=== PATIENT | male | born 1975 | race Two or more races ===

== ENCOUNTER 2024-02-07 11:37 | Emergency (ER) | payer MEDICAID, SELFPAY ==
[2024-02-07 12:08] VITALS: BP 164/102; PULSE 101; RESP 19; TEMP 36.8; O2SAT 98; BMI 37.3
--- NOTE | 2024-02-07 12:14 | PD.EDRME ---
Rapid Medical Screening Exam RME Arrival date/time: 02/07/24 11:37 48-year-old male presents emergency department complaining of right facial swelling and tooth infection. Chief Complaint: Dental/Oral/Throat Vital signs: Vital Signs Temperature 98.3 F 02/07/24 12:08 Pulse Rate 101 H 02/07/24 12:08 Respiratory Rate 19 02/07/24 12:08 Blood Pressure 164/102 H 02/07/24 12:08 Pulse Oximetry (%) 98 02/07/24 12:08 Oxygen Delivery Method Room Air 02/07/24 12:08 Vital signs reviewed by provider: Yes
[2024-02-07 12:33] LABS: Lactate (Lactic Acid) 1.3 mMol/L (0.4-2.0)
[2024-02-07 12:34] LABS: Basophils % (Auto) 0 % (0-2.5); Eosinophils % (Auto) 0 % (0-10); Hematocrit 43.4 % (41.0-53.0); Hemoglobin 15.2 g/dL (13.5-16.0); Immature Granulocytes % (Auto) 0 % (0-0); Immature Granulocytes Auto 0.04 Thou/mm3 (0.00-0.00); Lymphocytes % (Auto) 20 % (10-50); Mean Corpuscular Hemoglobin 30.6 pg (25.0-35.0); Mean Corpuscular Volume 87 fL (80-100); Monocytes # (Auto) 0.5 Thou/mm3 (0.0-0.8); Monocytes % (Auto) 4 % (0-12); Neutrophils # (Auto) 7.7 Thou/mm3 (1.8-7.7); Neutrophils % (Auto) 75 % (37-80); Nucleated Red Blood Cell % 0 /100 WBC (0); Platelet Count 244 Thou/mm3 (140-440); RDW Standard Deviation 41.7 fL (35.1-43.9); Red Blood Count 4.97 Miln/mm3 (4.50-5.90); White Blood Count 10.2 Thou/mm3 (3.8-10.6)
[2024-02-07 13:10] LABS: Alanine Aminotransferase 18 U/L (10-49); Albumin, Serum 4.8 gm/dL (3.5-5.0); Albumin/Globulin Ratio 1.4 (1.2-2.2); Alkaline Phosphatase 122 U/L (46-116); Anion Gap 5 (7-16); Aspartate Amino Transferase 16 U/L (0-34); BUN/Creatinine Ratio 17 Ratio (12-20); Bilirubin,Total 1.4 mg/dL (0.3-1.2); Blood Urea Nitrogen 17 mg/dL (9-23); Calcium 9.5 mg/dL (8.3-10.6); Calcium (Corrected) 9.5 mg/dL (8.5-10.1); Chloride 104 mMol/L (98-107); Estimated Creatinine Clearance 113.7 mL/min (>60); Globulin 3.5 gm/dL (2.3-3.5); Glucose 103 mg/dL (74-106); Osmolality,Calculated 275 (275-295); Potassium 3.7 mMol/L (3.4-5.1); Sodium 137 mMol/L (136-145); Total Protein 8.3 gm/dL (5.7-8.2); eGFR > 60 See Note
--- NOTE | 2024-02-07 15:03 | EDNOTE_ITS ---
ED Dental RME/HPI General Chief complaint: Dental/Oral/Throat Stated complaint: TOOTHACHE W/RIGHT SIDED FACIAL SWELLING Time Seen by Provider: 02/07/24 14:51 Arrival date/time: 02/07/24 11:37 RME / HPI RME / HPI Narrative: 48-year-old male presents emergency department complaining of right facial swelling and tooth infection. This been ongoing for the last 1 to 2 days. Denies any fever denies any difficulty swallowing. Denies any other complaints no medication was taken prior travel. Related Data Home Medications ?Medication ?Instructions ?Recorded ?Confirmed alprazolam 2 mg tablet (Xanax) 1 mg PO BID #0 tabs 05/14/16 08/18/18 Previous Rx's ?Medication ?Instructions ?Recorded omeprazole 20 mg capsule,delayed 20 mg PO QDAY #14 caps 09/02/18 release hydrocodone 5 mg-acetaminophen 325 1 tab PO QID PRN pain #14 tabs 10/29/18 mg tablet (Tracy) acetaminophen 500 mg tablet 500 mg PO Q6H PRN pain (scale 12/21/18 (Tylenol Extra Strength) score 4-6) #30 tabs ibuprofen 800 mg tablet 800 mg PO Q8H #30 tabs 02/20/19 clindamycin HCl 300 mg capsule 300 mg PO Q6H #28 caps 02/07/24 clindamycin HCl 300 mg capsule 300 mg PO Q6H #28 caps 02/07/24 ibuprofen 800 mg tablet 800 mg PO TID PRN pain #30 tabs 02/07/24 ibuprofen 800 mg tablet 800 mg PO TID PRN pain #30 tabs 02/07/24 Allergies Allergy/AdvReac Type Severity Reaction Status Date / Time codeine Allergy Severe SPINNING Verified 02/07/24 11:40 SENSATION Review of Systems Review of Systems Narrative Review of Systems: Review of system reviewed and within normal limits except mentioned in HPI ED Exam Narrative Physical exam: VITAL SIGNS: Reviewed. GENERAL APPEARANCE: Alert and interactive, follows commands, no acute distress, HEAD AND FACE: Non-traumatic. ENT: PERRL, pink conjunctivitis, eyelid no trauma, Mucous membrane moist. Multiple dental cavities noted. Gumline swelling noted on the right upper premolar, facial swelling noted on the right, nonfluctuant no redness NECK: Supple, nontender, no nuchal rigidity. CHEST: No tenderness, no crepitus, no paradoxical movement, no retractions. LUNGS: Clear, well ventilated, symmetric, no rales, no wheezing, no ronchi, no stridor, good breath sounds bilaterally. HEART: Regular rate, regular rhythm, no murmur, no gallops. ABDOMEN: Soft, positive bowel sounds, nondistended, no guarding, nontender, no rebound, no masses, RECTAL: Deferred. GENITAL: Deferred. NEUROLOGICAL: Gross motor function intact sensory function intact, Appropriate for age. MUSCULOSKELETAL: low back nontender, full range of motion. EXTREMITIES: Nontender, full range of motion. SKIN: Color pink, dry, no rash, no lacerations, no abrasions, no contusions. LYMPHATICS: Deferred. Course Quality Measures none Orders Category Date Time Status Blood Culture (Lab) Stat Lab 02/07/24 12:22 Results CBC Stat Lab 02/07/24 12:26 Completed CMP [Comprehensive Metabolic Panel] Stat Lab 02/07/24 12:26 Completed Lactate (Lactic Acid) Stat Lab 02/07/24 12:26 Completed Procalcitonin Stat Lab 02/07/24 12:26 Completed Clindamycin Vial [Cleocin vial] Med 02/07/24 14:59 Discontinued 600 mg IM X1 ONE Ketorolac Inj [Toradol Inj] Med 02/07/24 14:59 Discontinued 30 mg IM X1 ONE Vital Signs Vital signs: Vital Signs Temperature 98.3 F 02/07/24 12:08 Pulse Rate 101 H 02/07/24 12:08 Respiratory Rate 19 02/07/24 12:08 Blood Pressure 164/102 H 02/07/24 12:08 Pulse Oximetry (%) 98 02/07/24 12:08 Oxygen Delivery Method Room Air 02/07/24 12:08 Dental / Oral MDM Narrative MDM Narrative:: Patient's workup today all came back unremarkable no leukocytosis noted. Patient was given clindamycin IM and Toradol IM patient will be sent home on clindamycin and Motrin, patient was advised to come back to emergency room in 2 to 3 days for possible incision and drainage. At this time on my evaluation swelling still hard still not nonfluctuant. Not ready for I&D. Patient data External records reviewed:: None Clinical information provided by:: none Social determinants that could affect healthcare access:: none Patient has the following chronic illnesses:: None How is presenting disease/condition affected by chronic disease/condition?: no chronic disease Evaluation data The following diagnostics were reviewed and interpreted by me:: lab results Lab and/or radiology exams considered but not ordered:: None Interpretation Summary: Laboratory workup all came back normal no leukocytosis noted Medications / Prescriptions Medications or Prescriptions considered but not ordered:: None Medication administrations:: Medication Administration History Discontinued Medications Clindamycin Phosphate (Clindamycin Phos Inj 150 Mg/Ml Vial 6 Ml) 600 mg IM X1 ONE Stop: 02/07/24 15:00 Last Admin: 02/07/24 15:59 Dose: 600 mg Documented By: BULMARO Ketorolac Tromethamine (Ketorolac Inj 60 Mg/2 Ml Vial) 30 mg IM X1 ONE Stop: 02/07/24 15:00 Last Admin: 02/07/24 15:55 Dose: 30 mg Documented By: BULMARO Toradol clindamycin IM Consultations Consultation(s) initiated? (list below): No Diagnosis Dental Differential Diagnosis: gingival abscess, toothache and other (Dental abscess) Most likely diagnosis given after review of the tests above:: Infected dental infection Admission Indicated Admission indicated?: not indicated Admission Request Was there a request for admission?: No Disposition Plan Disposition Plan: Discharge Discharge Attestation Discharge Attestation: The patient and all family members were given an opportunity to ask questions and understood the discharge instructions. Discharge instructions specifically effects, indications for sooner follow up or return to the emergency department, and the expected course of current diagnosis. Patient condition: Stable Discharge Plan Plan Patient Disposition: HOME (Self Care) Disposition Comment: stable Prescriptions/Referrals Prescriptions/Med Rec: New clindamycin HCl 300 mg capsule 300 mg PO Q6H Qty: 28 0RF ibuprofen 800 mg tablet 800 mg PO TID PRN (Reason: pain) Qty: 30 0RF clindamycin HCl 300 mg capsule 300 mg PO Q6H Qty: 28 0RF ibuprofen 800 mg tablet 800 mg PO TID PRN (Reason: pain) Qty: 30 0RF No Action ibuprofen 800 mg tablet 800 mg PO Q8H Qty: 30 0RF alprazolam [Xanax] 2 MG tablet 1 mg PO BID Qty: 0 omeprazole 20 mg capsule,delayed release(DR/EC) 20 mg PO QDAY Qty: 14 0RF Rx Instructions: swallow whole; do not crush, chew, dissolve, cut, break hydrocodone-acetaminophen [Tracy] 5-325 mg tablet 1 tab PO QID MDD 3 tabs PRN (Reason: pain) Qty: 14 0RF acetaminophen [Tylenol Extra Strength] 500 mg tablet 500 mg PO Q6H PRN (Reason: pain (scale score 4-6)) Qty: 30 0RF Referrals: Pranav Nolan MD [Primary Care Provider] - In 1 week Problem List Clinical Impression: Infected dental caries, Dental abscess Patient/Caregiver Discharge Instructions Discharge Activity: activity as tolerated Education Materials: ED Abscess Antibiotic ... Additional Instructions: Thank you for the opportunity for serving you today. You are stable for discharged . You are advised to: Follow-up with your dentist in 1 to 2 days Return to emergency room in 2 to 3 days for possible incision and drainage Return to ED for worsening of symptoms Increase oral fluids Take medication as prescribed Print Language: [place] Stand Alone Forms: Ban Award Info., Patient Portal Info Letter Attestation Attestation The patient was seen by the midlevel practitioner. I, the co-signing physician, was present during the entire ER visit. While I did not physically examine the patient, I was available for consultation as needed.
[2024-02-07] MEDS: KETOROLAC INJ 60 MG/2 ML VIAL 30 MG IM (15:55)
[2024-02-07] MEDS: CLINDAMYCIN PHOS INJ 150 MG/ML VIAL 6 ML 600 MG IM (15:59)
[2024-02-07 16:01] VITALS: BP 164/109; PULSE 109; RESP 18; TEMP 37.1; O2SAT 95
== END 2024-02-07 16:17 | disposition home or self-care (01) ==
PROVIDERS: Emergency Provider Emergency Medicine; PCP Family Medicine
DX: K04.7 Periapical abscess without sinus (principal); K02.9 Dental caries, unspecified
CPT/HCPCS: 36415; 80053; 83605; 84145; 85025; 87040; 96372; 99283; J0736; J1885